=== PATIENT | female | born 1975 | race Caucasian/White ===

== ENCOUNTER 2017-03-23 19:31 | Emergency (ER) | payer OTHER ==
[~2017-03-23] VITALS: Ht 167.6 cm; Wt 97.1 kg
[2017-03-23 20:41] LABS: BASOPHILS % 0.6 % (0.0-1.0); EOSINOPHILS # (AUTO) 0.1 (0.0-0.4); EOSINOPHILS % 1.8 % (0.0-6.0); HEMATOCRIT 43.7 % (34.2-44.1); LYMPHOCYTES # (AUTO) 2.7 (1.0-3.2); LYMPHOCYTES % 38.6 % (18.0-39.1); MEAN CORPUSCULAR HEMOGLOBIN 31.1 pg (28-32); MEAN CORPUSCULAR HGB CONC 34.3 g/dL (31-35); MEAN CORPUSCULAR VOLUME 90.7 fL (81-99); MONOCYTES # (AUTO) 0.4 (0.2-0.8); MONOCYTES % 6.1 % (4.4-11.3); NEUTROPHILS # (AUTO) 3.7 (2.1-6.9); NEUTROPHILS % 52.8 % (38.7-80.0); PLATELET COUNT 327 x10e3/uL (140-360); RED BLOOD COUNT 4.82 x10e6/uL (3.6-5.1); RED CELL DISTRIBUTION WIDTH 12.7 % (11.7-14.4)
[2017-03-23 20:42] LABS: BILIRUBIN,URINE NEGATIVE (NEGATIVE); KETONES,URINE NEGATIVE (NEGATIVE); LEUKOCYTE ESTERASE ,URINE NEGATIVE (NEGATIVE); NITRITE,URINE NEGATIVE (NEGATIVE); PROTEIN,URINE DIPSTICK NEGATIVE (NEGATIVE); URINE UROBILINOGEN 0.2 mg/dL (0.2 - 1)
[2017-03-23 20:44] LABS: CLARITY,URINE CLEAR (CLEAR); COLOR,URINE YELLOW (YELLOW)
[2017-03-23 20:52] LABS: PREGNANCY TEST, URINE NEGATIVE (NEGATIVE)
[2017-03-23 20:55] LABS: EPITHELIAL CELLS,URINE MODERATE /LPF; TRANSITIONAL EPI CELLS,URINE FEW
[2017-03-23 20:56] LABS: ALANINE AMINOTRANSFERASE 22 IU/L (0-55); ALBUMIN 4.1 g/dL (3.5-5.0); ALBUMIN/GLOBULIN RATIO 1.1 (0.8-2.0); ALKALINE PHOSPHATASE 80 IU/L (40-150); ANION GAP 17.1 mmol/L (8-16); BLOOD UREA NITROGEN 10 mg/dL (7-26); BUN/CREATININE RATIO 10 (6-25); CALCIUM 8.8 mg/dL (8.4-10.2); CARBON DIOXIDE 19 mmol/L (22-29); CHLORIDE 99 mmol/L (98-107); CREATININE, SERUM 0.97 mg/dL (0.57-1.11); EST GLOMERULAR FILTRATION RATE > 60 ML/MIN (60-); GLUCOSE 319 mg/dL (74-118); POTASSIUM 4.1 mmol/L (3.5-5.1); SODIUM 131 mmol/L (136-145)
[2017-03-23 21:19] LABS: PLATELET ESTIMATE ADEQUATE; PLATELET MORPHOLOGY COMMENT NORMAL; RBC MORPHOLOGY COMMENT NORMAL
[2017-03-23] MEDS ORDERED: SODIUM CHLORIDE 0.9% 1000ML 1,000 ML IV SCH (22:45)
[2017-03-23] MEDS ORDERED: INSULIN REGULAR, HUMAN 100 UNIT/1 ML 3ML VIAL SQ ONE (22:45)
== END 2017-03-24 01:00 | disposition home or self-care (01) ==
LOC: ER 19:31
DX: E11.65 Type 2 diabetes mellitus with hyperglycemia (principal); I10 Essential (primary) hypertension
CPT/HCPCS: 36415; 80053; 81001; 81025; 82948; 85025; 87086; 93005; 99283; J7030

== ENCOUNTER → 2018-06-05 | Outpatient (CLI) | payer OTHER | LOC: MAMMO 13:52 | PROVIDERS: ATTEND Internal Medicine | DX: Z12.31 Encounter for screening mammogram for malignant neoplasm of breast (principal) | CPT/HCPCS: 77067 ==

== ENCOUNTER → 2018-07-05 | Outpatient (CLI) | payer OTHER ==
--- NOTE | 2018-07-06 08:28 | Diagnostic Imaging Report ---
#[id number] - USBRELIMRT ULTRASOUND OF THE RIGHT BREAST : 07/05/2018 Comparison is made to exams dated: 07/05/2018 mammogram and 06/05/2018 mammogram - [facility]. Focused color flow and real-time ultrasound were performed on the right breast at the 5 o'clock position. -There 2 discrete complex cysts at the 5 o'clock position 2 cm from the nipple. These measure 4 x 5 x 7 mm and 7 x 2 x 6 mm. IMPRESSION: BENIGN There is no sonographic evidence of malignancy. A 1 year screening mammogram is recommended. Alvaro Glover Jr., D.O. cw/:07/05/2018 15:24:33 Well Site Drilling Engineer: JAYMIE BARTHOLOMEW RDMS, [facility] letter sent: Normal Exam Ultrasound BI-RADS: 2 Benign
--- NOTE | 2018-07-06 08:28 | Diagnostic Imaging Report ---
#[id number] - MGDXRT #UNILATERAL RIGHT DIGITAL DIAGNOSTIC MAMMOGRAM WITH SPOT COMPRESSION: 07/05/2018 Comparison is made to exam dated: 06/05/2018 mammogram - [facility]. Current study contains 3 films. The tissue of the right breast is heterogeneously dense. This may lower the sensitivity of mammography. Additional imaging shows the mass to persist. An ultrasound is recommended and will follow this exam. No significant masses, calcifications, or other findings are seen in the breast. IMPRESSION: INCOMPLETE: NEEDS ADDITIONAL IMAGING EVALUATION Follow-up with ACR/ACS guidelines. The patient was notified of these findings. Alvaro Glover Jr., D.O. cw/:07/05/2018 15:19:07 Coppersmith Apprentice: Eboni SHAH)(M), [facility] letter sent: Additional Imaging Needed Mammogram BI-RADS: 0 Indeterminate
== END ==
LOC: MAMMO 13:08
PROVIDERS: ATTEND Internal Medicine
DX: N63.10 Unspecified lump in the right breast, unspecified quadrant (principal)

== ENCOUNTER 2018-11-17 14:26 | Observation (INO) | payer OTHER ==
[~2018-11-17] VITALS: Ht 167.6 cm; Wt 105.2 kg
--- OUTSIDE RECORDS SUMMARY | 2018-11-17 14:29 | XMS REPORT ---
Author Author [facility] Address Unknown Phone Unavailable Care Team Providers Care [place] Distribution Clerk Name Role Phone HUYEN ARELLANO Unavailable Unavailable Payers Payer Name Policy Type Policy Number Effective Date Expiration Date Problems This patient has no known problems. Allergies, Adverse Reactions, Alerts Allergy Name Allergy Type Status Severity Reaction(s) Onset Date Inactive Date Treating Clinician Comments COLLAGEN (SYNTHETIC) DA Active U 2018-03-05 00:00:00 No Known Allergies DA Active U 2016-06-01 00:00:00 Medications This patient has no known medications. Results Test Description Test Time Test Comments Text Results Atomic Results Result Comments MAMMOGRAPHY DIGITAL DX UNI RT 2018-07-05 14:34:00 [facility] [address] [place] [address] Patient Name: SHANTELL MALLORY MR #: [id number] : 1975 Age/Sex: 42/F Req #: [id number] Adm Physician: Ordered by: HUYEN ARELLANO MD Report #: [id number] Location: MAMMO Room/Bed: Procedure: MG/MAMMOGRAPHY DIGITAL DX UNI RT Exam Date: 07/05/18 Exam Time: 1326 REPORT STATUS: Signed #[id number] - MGDXRT #UNILATERAL RIGHT DIGITAL DIAGNOSTIC MAMMOGRAM WITH SPOT COMPRESSION: 07/05/2018 Comparison is made to exam dated: 06/05/2018 mammogram - [facility]. Current study contains 3 films. The tissue of the right breast is heterogeneously dense. This may lower the sensitivity of mammography. Additional imaging shows the mass to persist. An ultrasound is recommended and will follow this exam. No significant masses, calcifications, or other findings are seen in the breast. IMPRESSION: INCOMPLETE: NEEDS ADDITIONAL IMAGING EVALUATION Follow-up with ACR/ACS guidelines. The patient was notified of these findings. Alvaro Le Jr., D.O. cw/:07/05/2018 15:19:07 Operator Assistant I Cementing: Eboni BELL(R)(M), [facility] letter sent: Additional Imaging Needed Mammogram BI-RADS: 0 Indeterminate Dictated By: ALVARO LE DO 18 Transcribed By: ABELINO on 07/05/181518 COPY TO: HUYEN ARELLANO MD BREAST LIMITED RIGHT 2018-07-05 14:34:00 [place] [address] Patient Name: SHANTELL MALLORY MR #: [id number] : 1975 Age/Sex: 42/F Req #: [id number] Adm Physician: Ordered by: HUYEN ARELLANO MD Report #: [id number] Location: MAMMO Room/Bed: Procedure: [id number] US/US BREAST LIMITED RIGHT Exam Date: Exam Time: REPORT STATUS: Signed #[id number] - USBRELIMRT ULTRASOUND OF THE RIGHT BREAS T : 07/05/2018 Comparison is made to exams dated: 07/05/2018 mammogram and 06/05/2018 mammogram - [facility]. Focused color flow and real-time ultrasound were performed on the right breast at the 5 o'clock position. -There 2 discrete complex cysts at the 5 o'clock position 2 cm from the nipple. These measure 4 x 5 x 7 mm and 7 x 2 x 6 mm. IMPRESSION: BENIGN There is no sonographic evidence of malignancy. A 1 year screening mammogram is recommended. Alvaro Le Jr., D.O. cw/:07/05/2018 15:24:33 Operator Assistant I Cementing: JAYMIE BARTHOLOMEW [facility], [facility] letter sent: Normal Exam Ultrasound BI-RADS: 2 Benign Dictated By: ALVARO LE DO 1524 Transcribed By: ABELINO on 07/05/18 1524 COPY TO: HUYEN ARELLANO MD MAMMOGRAPHY DIGITAL SCR BILAT 2018-06-05 14:47:00 [place] [address] Patient Name: SHANTELL MALLORY MR #: [id number] : 1975 Age/Sex: 42/F Req #: [id number] Adm Physician: Ordered by: HUYEN ARELLANO MD Report #: [id number] Location: MAMMO Room/Bed: Procedure: [id number] MG/MAMMOGRAPHY DIGITAL SCR BILAT Exam Date: 06/05/18 Exam Time: 1400 REPORT STATUS: Signed #[id number] - MGSCRBIL #BILATERAL DIGITAL SCREENING MAMMOGRAM WITH CAD: 06/05/2018 CLINICAL: Routine screening. No prior exams were available for comparison. The tissue of both breasts is heterogeneously dense. This may lower the sensitivity of mammography. Current study was also evaluated with a Computer Aided Detection (CAD) system. There is a 5 mm mass in the right breast at 5 o'clock anterior depth. No other significant masses, calcifications, or other findings are seen in either breast. IMPRESSION: INCOMPLETE: NEEDS ADDITIONAL IMAGING EVALUATION The 5 mm mass in the right breast is indeterminate. Additional views with possible ultrasound are recommended. The patient will be contacted by the Mammography Department to schedule this appointment. TOMI TALAVERA M.D., mc/abelino:06/19/2018 09:19:30 Operator Assistant I Cementing: Eboni SHAH)(Tee), [facility] letter sent: Additional Imaging Needed Mammogram BI-RADS: 0 Indeterminate Dictated By: KOLTON TALAVERA MD 8 Transcribed By: ABELINO on 06/19/18918 COPY TO: HUYEN ARELLANO MD GLUBED 2018-03-07 14:20:00 GLUBED (test code=GLUBED) 234 mg/dL 74-106 Performed by certified heddle machine operator at [facility] [id number] 12:03:00 RUN DATE: 03/07/18 [place] - Lab PAGE 1 RUN TIME: 1203 Specimen Inqui ry RUN USER: INTERFACE PATIENT: SHANTELL MALLORY ACCT #: [id number] [facility] U #: [id number] AGE/SX: 42/F ROOM: 2034 RE03/06/18REG DR: Sherice Ron MD : 75 BED: A DIS: STATUS: ADM Vivek TLOC: SPEC #: [id number] RECD: 03/06/18 STATUS: [facility] #: [id number] ORION: 03/06/18- SUBM DR: Sherice Ron ENTERED: 03/06/18 SP TYPE: UTERUS OTHR DR: Neetu Arellano MD ORDERED: GROSS COPIES TO: Neetu Arellano MD [address] [place], [place] [address] [email or web address] Sherice Ron MD 0[address] [facility], [address] [address] MARKERS: ABNORMAL TISSUE, UTERUS PROCEDURES: GROSS (03/07/18-1037) TISSUES: UTERUS, NOS - CERVIX, BILATERAL FALLOPIAN TUBES CLI NICAL HISTORY COLLECTION DATE: 03/06/18 PELVIC PAIN, MENOMETRORRHAGIA FINAL DIAGNOSIS Uterus with bilateral fallopian tubes, hysterectomy with bilateral salpingectomy: CERVIX, PATCHY CHRONIC CERVICITIS END OMETRIUM, SECRETORY PATTERN MYOMETRIUM, AREA OF SUPERFICIAL ADENOMYOSIS SEROSA, NO PATHOLOGIC ALTERATION BILATERAL FALLOPIAN TUBES, FIMBRIA SUSIE AND TRANSECTED FALLOPIAN TUBES X 2 WITH MILD ATROPHIC CHANGE NEGATIVE FOR MALIGNANCY RRB/sm A [id number] CONTINUED ON NEXT PAGE RUN DATE: 03/07/18 [facility] PAGE 2 RUN TIME: 1203 Specimen Inquiry RUN USER: INTERFACE SPEC #: [id number] PATIENT: SHANTELL MALLORY #[id number] (Continued)-- MACROSCOPIC The specimen is received in formalin, label ed with the patient's name, and identified as "uterus cervix bilateral fallopi an tubes". It consists of a symmetrically shaped uterus with bilaterally tesfaye ched fallopian tubes. The uterus measures 9.5 cm from the top of the fundus t o the cervix, 7.0 cm from right to left and up to 5.0 cm in A-P diameter. The right fallopoian tube segment is fimbriated and measures 7 cm in length with diameter up to 0.6 cm. The left fallopian tube segment is fimbriated and measu res 7 cm in length with diameter up to 0.6 cm. After removing both fallopian tubes the uterus weighs 134.1 grams. The serosal surface is pink-red t o pink-anguiano and smooth. The ectocervical mucosa is pink-maxwell and smooth. The cervical os is round and patent. No focal lesions are seen within the endocer vical canal. The endometrial cavity is empty but the lining appears to be red undant in some areas with a thickness up to 0.4 cm. The majority of the endom etrial lining measures up to 0.2 cm in thickness. The myometrium is pink-maxwell, homogenous and measures up to 2.2 cm in thickness. No discrete nodules or ma sses are identified. A small amount of fatty tissue is attached to the distal ends of both fallopian tubes but no other focal lesions are seen. Secti on Code: 1A-1B- anterior and posterior cervix; 1C-1D- anterior and posterior e ndomyometrium; 1E- sections of right fallopian tubes; 1F- sections of left fal lopian tube. GROSS PERFORMED AT [facility] [address] [place] [address] (P)[phone] MICRO SCOPIC MICROSCOPIC PERFORMED AT [facility] All of the stains, i ncluding any controls performed, stain appropriately. [facility] [address] [place] [address] (P)[phone] PERFORMING SITE Diagnosis performed at: [facility], [place] [address] [place] [address] CONTINUED ON NEXT PAGE RUN DATE: 03/07/18 [facility] PAGE 3 RUN TIME: 1203 Specimen Inquiry RUN USER: INTERFACE SPEC #: [id number] PATIENT: MOHAMUDSHANTELL WILLIS #[id number] (Continued)------- ----- PERFORMING SITE (Continued) [phone]-------- ---- Signed SIGNATURE ON FILE Abisai Goodman 03/07/18 1203 END OF REPORT CBC W/AUTO [id number] 07:46:00* Test Item Value Reference Range Comments WHITE BLOOD CELL (test code=WBC) 10.0 K/mm3 4.5-12.5 RED BLOOD CELL (test code=RBC) 3.97 mill/mm3 3.7-5.2 HEMOGLOBIN (test code=HGB) 11.9 gram/dL 11.5-15.5 HEMATOCRIT (test code=HCT) 37.7 % 36.0-46.0 MEAN CELL VOLUME (test code=MCV) 95.0 fL 80-98 MEAN CELL HGB (test code=MCH) 30.0 picogram 27.0-33.0 MEAN CELL HGB CONCETRATION (test code=MCHC) 31.6 gram/dL 33.0-36.0 RED CELL DISTRIBUTION WIDTH (test code=RDW) 12.7 % 11.6-16.2 RED CELL DISTRIBUTION WIDTH SD (test code=RDW-SD) 44.0 fL 37.0-51.0 PLATELET COUNT (test code=PLT) 299 K/mm3 150-450 RESULT VERIFIED BY REPEAT ANALYSIS MEAN PLATELET VOLUME (test code=MPV) 8.6 fL 6.7-11.0 NEUTROPHIL % (test code=NT%) 63.0 % 39.0-69.0 IMMATURE GRANULOCYTE % (test code=IG%) 0.3 % 0.0-5.0 LYMPHOCYTE % (test code=LY%) 30.6 % 25.0-55.0 MONOCYTE % (test code=MO%) 5.1 % 0.0-10.0 EOSINOPHIL % (test code=EO%) 0.7 % 0.0-5.0 BASOPHIL % (test code=BA%) 0.3 % 0.0-1.0 NUCLEATED RBC % (test code=NRBC%) 0.0 % 0-0 NEUTROPHIL # (test code=NT#) 6.27 K/mm3 1.8-7.7 IMMATURE GRANULOCYTE # (test code=IG#) 0.03 x10 3/uL 0-0.03 LYMPHOCYTE # (test code=LY#) 3.05 K/mm3 1.0-5.0 MONOCYTE # (test code=MO#) 0.51 K/mm3 0-0.8 EOSINOPHIL # (test code=EO#) 0.07 K/mm3 0.0-0.5 BASOPHIL # (test code=BA#) 0.03 K/mm3 0.0-0.2 NUCLEATED RBC # (test code=NRBC#) 0.00 K/mm3 0.0-0.1 MANUAL DIFF REQUIRED (test code=MDIFF) NO [id number] 07:32:00* Test Item Value Reference Range Comments GLUBED (test code=GLUBED) 174 mg/dL 74-106 Performed by certified heddle machine operator at [facility] COMPREHENSIVE METABOLIC [id number] 06:59:00* Test Item Value Reference Range Comments SODIUM (test code=NA) 138 mmol/L 136-145 POTASSIUM (test code=K) 3.7 mmol/L 3.5-5.1 CHLORIDE (test code=CL) 106.0 mmol/L 98-107 CARBON DIOXIDE (test code=CO2) 23.0 mmol/L 21-32 ANION GAP (test code=GAP) 12.7 10-20 GLUCOSE (test code=GLU) 193 mg/dL 74-106 BLOOD UREA NITROGEN (test code=BUN) 3 mg/dL 7-18 GLOMERULAR FILTRATION RATE (test code=GFR) > 60 mL/min >=60 Estimated GFR by using Modified MDRD formula.Chronic kidney disease is defined as either kidney damageor GFR <60 mL/min/1.73 m2 for >3 months. CREATININE (test code=CREAT) 0.80 mg/dL 0.55-1.02 Note change in reference range due to change in reagent. BUN/CREATININE RATIO (test code=BUN/CREA) 3.9 10-20 TOTAL PROTEIN (test code=PROT) 6.1 gram/dL 6.4-8.2 ALBUMIN (test code=ALB) 3.0 g/dL 3.4-5.0 GLOBULIN (test code=GLOB) 3.1 gram/dL 2.7-4.2 ALBUMIN/GLOBULIN RATIO (test code=A/G) 1.0 0.75-1.50 CALCIUM (test code=CA) 7.7 mg/dL 8.5-10.1 BILIRUBIN TOTAL (test code=BILT) 0.20 mg/dL 0.0-1.0 SGOT/AST (test code=AST) 11 IUnit/L 15-37 SGPT/ALT (test code=ALT) 26 IUnit/L 12-78 ALKALINE PHOSPHATASE TOTAL (test code=ALKP) 60 IUnit/L 45-117 Note change in reference range due to change in reagent. [id number] 21:16:00* Test Item Value Reference Range Comments GLUBED (test code=GLUBED) 153 mg/dL 74-106 Performed by certified heddle machine operator at [facility] [id number] 15:53:00* Test Item Value Reference Range Comments GLUBED (test code=GLUBED) 212 mg/dL 74-106 Performed by certified heddle machine operator at [facility] HGB [id number] 14:40:00* Test Item Value Reference Range Comments HEMOGLOBIN (test code=HGB) 13.2 gram/dL 11.5-15.5 HEMATOCRIT (test code=HCT) 40.5 % 36.0-46.0 [id number] 10:18:00* Test Item Value Reference Range Comments GLUBED (test code=GLUBED) 164 mg/dL 74-106 Performed by certified heddle machine operator at [facility] COMPREHENSIVE METABOLIC [id number] 15:37:00* Test Item Value Reference Range Comments SODIUM (test code=NA) 132 mmol/L 136-145 POTASSIUM (test code=K) 4.0 mmol/L 3.5-5.1 CHLORIDE (test code=CL) 99.0 mmol/L 98-107 CARBON DIOXIDE (test code=CO2) 26.0 mmol/L 21-32 ANION GAP (test code=GAP) 11.0 10-20 GLUCOSE (test code=GLU) 209 mg/dL 74-106 BLOOD UREA NITROGEN (test code=BUN) 5 mg/dL 7-18 GLOMERULAR FILTRATION RATE (test code=GFR) > 60 mL/min >=60 Estimated GFR by using Modified MDRD formula.Chronic kidney disease is defined as either kidney damageor GFR <60 mL/min/1.73 m2 for >3 months. CREATININE (test code=CREAT) 0.80 mg/dL 0.55-1.02 Note change in reference range due to change in reagent. BUN/CREATININE RATIO (test code=BUN/CREA) 6.0 10-20 TOTAL PROTEIN (test code=PROT) 7.5 gram/dL 6.4-8.2 ALBUMIN (test code=ALB) 3.9 g/dL 3.4-5.0 GLOBULIN (test code=GLOB) 3.6 gram/dL 2.7-4.2 ALBUMIN/GLOBULIN RATIO (test code=A/G) 1.1 0.75-1.50 CALCIUM (test code=CA) 8.5 mg/dL 8.5-10.1 BILIRUBIN TOTAL (test code=BILT) 0.20 mg/dL 0.0-1.0 SGOT/AST (test code=AST) 9 IUnit/L 15-37 SGPT/ALT (test code=ALT) 28 IUnit/L 12-78 ALKALINE PHOSPHATASE TOTAL (test code=ALKP) 74 IUnit/L 45-117 Note change in reference range due to change in reagent. HCG SERUM [id number] 15:37:00* Test Item Value Reference Range Comments HCG SERUM QUAL (test code=HCGQL) NEGATIVE NEGATIVE This HCGQL test is NOT applicable for MALE patients.Check with nurse about probable order error.If Tumor Marker Test needed, nurse should order test "HCGTU"(Test #550.69134) COMPREHENSIVE METABOLIC [id number] 14:46:00* Test Item Value Reference Range Comments SODIUM (test code=NA) 132 mmol/L 136-145 POTASSIUM (test code=K) 4.0 mmol/L 3.5-5.1 CHLORIDE (test code=CL) 99.0 mmol/L 98-107 CARBON DIOXIDE (test code=CO2) 26.0 mmol/L 21-32 ANION GAP (test code=GAP) 11.0 10-20 GLUCOSE (test code=GLU) 209 mg/dL 74-106 BLOOD UREA NITROGEN (test code=BUN) 5 mg/dL 7-18 GLOMERULAR FILTRATION RATE (test code=GFR) > 60 mL/min >=60 Estimated GFR by using Modified MDRD formula.Chronic kidney disease is defined as either kidney damageor GFR <60 mL/min/1.73 m2 for >3 months. CREATININE (test code=CREAT) 0.80 mg/dL 0.55-1.02 Note change in reference range due to change in reagent. BUN/CREATININE RATIO (test code=BUN/CREA) 6.0 10-20 TOTAL PROTEIN (test code=PROT) 7.5 gram/dL 6.4-8.2 ALBUMIN (test code=ALB) 3.9 g/dL 3.4-5.0 GLOBULIN (test code=GLOB) 3.6 gram/dL 2.7-4.2 ALBUMIN/GLOBULIN RATIO (test code=A/G) 1.1 0.75-1.50 CALCIUM (test code=CA) 8.5 mg/dL 8.5-10.1 BILIRUBIN TOTAL (test code=BILT) 0.20 mg/dL 0.0-1.0 SGOT/AST (test code=AST) 9 IUnit/L 15-37 SGPT/ALT (test code=ALT) 28 IUnit/L 12-78 ALKALINE PHOSPHATASE TOTAL (test code=ALKP) 74 IUnit/L 45-117 Note change in reference range due to change in reagent. HCG SERUM [id number] 14:46:00* Test Item Value Reference Range Comments HCG SERUM QUAL (test code=HCGQL) NEGATIVE COMPREHENSIVE METABOLIC [id number] 14:40:00* Test Item Value Reference Range Comments SODIUM (test code=NA) 132 mmol/L 136-145 POTASSIUM (test code=K) 4.0 mmol/L 3.5-5.1 CHLORIDE (test code=CL) 99.0 mmol/L 98-107 CARBON DIOXIDE (test code=CO2) mmol/L 21-32 ANION GAP (test code=GAP) 10-20 GLUCOSE (test code=GLU) mg/dL 74-106 BLOOD UREA NITROGEN (test code=BUN) mg/dL 7-18 GLOMERULAR FILTRATION RATE (test code=GFR) mL/min >=60 CREATININE (test code=CREAT) mg/dL 0.55-1.02 BUN/CREATININE RATIO (test code=BUN/CREA) 10-20 TOTAL PROTEIN (test code=PROT) gram/dL 6.4-8.2 ALBUMIN (test code=ALB) g/dL 3.4-5.0 GLOBULIN (test code=GLOB) gram/dL 2.7-4.2 ALBUMIN/GLOBULIN RATIO (test code=A/G) 0.75-1.50 CALCIUM (test code=CA) mg/dL 8.5-10.1 BILIRUBIN TOTAL (test code=BILT) mg/dL 0.0-1.0 SGOT/AST (test code=AST) IUnit/L 15-37 SGPT/ALT (test code=ALT) IUnit/L 12-78 ALKALINE PHOSPHATASE TOTAL (test code=ALKP) IUnit/L 45-117 HCG SERUM [id number] 14:40:00* Test Item Value Reference Range Comments HCG SERUM QUAL (test code=HCGQL) NEGATIVE URINALYSIS [id number] 14:26:00* Test Item Value Reference Range Comments UA COLOR (test code=COLU) STRAW YELLOW UA APPEARANCE (test code=APPU) CLEAR CLEAR UA GLUCOSE DIPSTICK (test code=DGLUU) >=500 mg/dL NEGATIVE UA BILIRUBIN DIPSTICK (test code=BILU) NEGATIVE mg/dL NEGATIVE UA KETONE DIPSTICK (test code=KETU) Negative mg/dL NEGATIVE UA SPECIFIC GRAVITY (test code=SGU) 1.006 1.001-1.035 UA BLOOD DIPSTICK (test code=DARLENE) Negative NEGATIVE UA PH DIPSTICK (test code=RAMON) 7.0 5.0-8.0 UA PROTEIN DIPSTICK (test code=PROU) Negative mg/dL NEGATIVE UA UROBILINIOGEN DIPSTICK (test code=URO) NEGATIVE mg/dL NEGATIVE UA NITRITE DIPSTICK (test code=SAIRA) NEGATIVE NEGATIVE UA LEUKOCYTE ESTERASE W REFLEX (test code=LEUUR) NEGATIVE NEGATIVE UA WBC (test code=WBCU) 0-5 #/HPF 0-5 UA RBC (test code=RBCU) 0-2 #/HPF 0-5 UA EPITHELIAL CELLS (test code=EPIU) FEW per HPF FEW UA BACTERIA (test code=BACU) FEW #/HPF NONE UA MUCUS (test code=MUCU) FEW #/LPF FEW URINALYSIS [id number] 14:23:00* Test Item Value Reference Range Comments UA COLOR (test code=COLU) STRAW YELLOW UA APPEARANCE (test code=APPU) CLEAR CLEAR UA BILIRUBIN DIPSTICK (test code=BILU) NEGATIVE mg/dL NEGATIVE UA KETONE DIPSTICK (test code=KETU) Negative mg/dL NEGATIVE UA SPECIFIC GRAVITY (test code=SGU) 1.006 1.001-1.035 UA BLOOD DIPSTICK (test code=DARLENE) Negative NEGATIVE UA PH DIPSTICK (test code=RAMON) 7.0 5.0-8.0 UA PROTEIN DIPSTICK (test code=PROU) Negative mg/dL NEGATIVE UA UROBILINIOGEN DIPSTICK (test code=URO) NEGATIVE mg/dL NEGATIVE UA NITRITE DIPSTICK (test code=SAIRA) NEGATIVE NEGATIVE UA LEUKOCYTE ESTERASE W REFLEX (test code=LEUUR) NEGATIVE NEGATIVE UA WBC (test code=WBCU) 0-5 #/HPF 0-5 UA RBC (test code=RBCU) 0-2 #/HPF 0-5 UA EPITHELIAL CELLS (test code=EPIU) FEW per HPF FEW URINALYSIS [id number] 14:22:00* Test Item Value Reference Range Comments UA COLOR (test code=COLU) STRAW YELLOW UA APPEARANCE (test code=APPU) CLEAR CLEAR UA BILIRUBIN DIPSTICK (test code=BILU) NEGATIVE mg/dL NEGATIVE UA KETONE DIPSTICK (test code=KETU) Negative mg/dL NEGATIVE UA SPECIFIC GRAVITY (test code=SGU) 1.006 1.001-1.035 UA BLOOD DIPSTICK (test code=DARLENE) Negative NEGATIVE UA PH DIPSTICK (test code=RAMON) 7.0 5.0-8.0 UA PROTEIN DIPSTICK (test code=PROU) Negative mg/dL NEGATIVE UA UROBILINIOGEN DIPSTICK (test code=URO) NEGATIVE mg/dL NEGATIVE UA NITRITE DIPSTICK (test code=SAIRA) NEGATIVE NEGATIVE UA LEUKOCYTE ESTERASE W REFLEX (test code=LEUUR) NEGATIVE NEGATIVE UA WBC (test code=WBCU) per HPF 0-5 - XR CHEST 2 [id number] 14:22:00 FAX: Neetu Chou [phone] [place]: O St: PRE FAX: Sherice Rivas MD [phone] Name: SHANTELL MALLORY Pt[facility] : 1975 Age/S: 42/F [address] [facility] Unit #: [id number] Loc: [place] [address] Phys: Sherice Ron MD Acct: [id number] Dis Date: Status: PRE SDC PHONE #: [phone] Exam Date: 03/05/2018 1353 FAX #: [phone] Reason: PRE OP EXAMS: CPT CODE: [id number] XR CHEST 2 V 24726 EXAM: Chest X-ray, 2 views; CLINICAL HISTORY: Pelvic pain, menorrhagia; preop; FINDINGS: The lungs are clear, no infiltrates, no edema; no effusions; no pneumothorax; normal cardiomediastinal silhouette. IMPRESSION: Normal chest x-ray. at 0002 Reported and signed by: Lane Hood M.D. CC: Neetu Arellano MD; Sherice Ron MD Technologist: RT Bre(Adonay) Trnscrd Date/Time/By: 03/05/2018 (142) : By: TinoGRW Orig Print D/T: S: 03/05/2018 (4204) PAGE 1 Signed Report CBC W/AUTO DIFF 2018-03-05 14:19:00* Test Item Value Reference Range Comments WHITE BLOOD CELL (test code=WBC) 8.6 K/mm3 4.5-12.5 RED BLOOD CELL (test code=RBC) 4.59 mill/mm3 3.7-5.2 HEMOGLOBIN (test code=HGB) 14.1 gram/dL 11.5-15.5 HEMATOCRIT (test code=HCT) 41.8 % 36.0-46.0 MEAN CELL VOLUME (test code=MCV) 91.1 fL 80-98 MEAN CELL HGB (test code=MCH) 30.7 picogram 27.0-33.0 MEAN CELL HGB CONCETRATION (test code=MCHC) 33.7 gram/dL 33.0-36.0 RED CELL DISTRIBUTION WIDTH (test code=RDW) 12.8 % 11.6-16.2 RED CELL DISTRIBUTION WIDTH SD (test code=RDW-SD) 42.0 fL 37.0-51.0 PLATELET COUNT (test code=PLT) 356 K/mm3 150-450 MEAN PLATELET VOLUME (test code=MPV) 8.5 fL 6.7-11.0 NEUTROPHIL % (test code=NT%) 73.3 % 39.0-69.0 IMMATURE GRANULOCYTE % (test code=IG%) 0.2 % 0.0-5.0 LYMPHOCYTE % (test code=LY%) 21.0 % 25.0-55.0 MONOCYTE % (test code=MO%) 4.2 % 0.0-10.0 EOSINOPHIL % (test code=EO%) 0.8 % 0.0-5.0 BASOPHIL % (test code=BA%) 0.5 % 0.0-1.0 NUCLEATED RBC % (test code=NRBC%) 0.0 % 0-0 NEUTROPHIL # (test code=NT#) 6.30 K/mm3 1.8-7.7 IMMATURE GRANULOCYTE # (test code=IG#) 0.02 x10 3/uL 0-0.03 LYMPHOCYTE # (test code=LY#) 1.81 K/mm3 1.0-5.0 MONOCYTE # (test code=MO#) 0.36 K/mm3 0-0.8 EOSINOPHIL # (test code=EO#) 0.07 K/mm3 0.0-0.5 BASOPHIL # (test code=BA#) 0.04 K/mm3 0.0-0.2 NUCLEATED RBC # (test code=NRBC#) 0.00 K/mm3 0.0-0.1
[2018-11-17 15:10] LABS: BASOPHILS % 0.4 % (0.0-1.0); EOSINOPHILS # (AUTO) 0.1 (0.0-0.4); EOSINOPHILS % 1.2 % (0.0-6.0); HEMATOCRIT 41.1 % (34.2-44.1); HEMOGLOBIN 13.9 g/dL (12.0-16.0); LYMPHOCYTES # (AUTO) 2.2 (1.0-3.2); LYMPHOCYTES % 30.5 % (18.0-39.1); MEAN CORPUSCULAR HEMOGLOBIN 28.9 pg (28-32); MEAN CORPUSCULAR HGB CONC 33.8 g/dL (31-35); MEAN CORPUSCULAR VOLUME 85.4 fL (81-99); MONOCYTES # (AUTO) 0.4 (0.2-0.8); MONOCYTES % 5.3 % (4.4-11.3); NEUTROPHILS # (AUTO) 4.5 (2.1-6.9); NEUTROPHILS % 62.3 % (38.7-80.0); PLATELET COUNT 339 x10e3/uL (140-360); RED BLOOD COUNT 4.81 x10e6/uL (3.6-5.1); RED CELL DISTRIBUTION WIDTH 12.5 % (11.7-14.4)
[2018-11-17 15:17] LABS: BILIRUBIN,URINE NEGATIVE (NEGATIVE); CLARITY,URINE CLEAR (CLEAR); COLOR,URINE YELLOW (YELLOW); KETONES,URINE NEGATIVE (NEGATIVE); LEUKOCYTE ESTERASE ,URINE NEGATIVE (NEGATIVE); NITRITE,URINE NEGATIVE (NEGATIVE); PROTEIN,URINE DIPSTICK NEGATIVE (NEGATIVE); URINE UROBILINOGEN 0.2 mg/dL (0.2 - 1)
[2018-11-17 15:38] LABS: ALANINE AMINOTRANSFERASE 32 IU/L (0-55); ALBUMIN 3.8 g/dL (3.5-5.0); ALBUMIN/GLOBULIN RATIO 1.2 (0.8-2.0); ALKALINE PHOSPHATASE 72 IU/L (40-150); ANION GAP 13.7 mmol/L (8-16); BLOOD UREA NITROGEN 9 mg/dL (7-26); BUN/CREATININE RATIO 11 (6-25); CALCIUM 9.4 mg/dL (8.4-10.2); CARBON DIOXIDE 23 mmol/L (22-29); CHLORIDE 101 mmol/L (98-107); CREATININE, SERUM 0.83 mg/dL (0.57-1.11); EST GLOMERULAR FILTRATION RATE > 60 ML/MIN (60-); GLUCOSE 253 mg/dL (74-118); POTASSIUM 3.7 mmol/L (3.5-5.1); SODIUM 134 mmol/L (136-145)
[2018-11-17 15:44] LABS: BACTERIA,URINE RARE /HPF; EPITHELIAL CELLS,URINE FEW /LPF; PREGNANCY TEST, URINE NEGATIVE (NEGATIVE); RBC,URINE 0-5 /HPF (0-5); WBC,URINE (MAN) 0-5 /HPF (0-5)
[2018-11-17] MEDS ORDERED: SODIUM CHLORIDE 0.9% 1000ML 1,000 ML IV STA (15:59)
[2018-11-17] MEDS ORDERED: MORPHINE SULFATE 2 MG/ML SYR 1ML IV NR (16:00)
[2018-11-17] MEDS ORDERED: KETOROLAC TROMETHAMINE 30 MG/ML VIAL IV NR (16:00)
[2018-11-17] MEDS ORDERED: ONDANSETRON HCL INJ 2MG/ML 2ML 2 MG/ML VIAL IV NR (16:15)
[2018-11-17] MEDS ORDERED: SODIUM CHLORIDE 0.9% 50ML 50 ML ONE (16:19)
[2018-11-17] MEDS ORDERED: IOPAMIDOL 370 MG/ML 200 ML INFUS..BTL INJ ONE (16:20)
--- NOTE | 2018-11-17 17:46 | Diagnostic Imaging Report ---
EXAM: CT Abdomen and Pelvis WITH contrast INDICATION: ^RLQ ABD PAIN ^[id number] ^1626 COMPARISON: None. TECHNIQUE: Abdomen and pelvis were scanned utilizing a multidetector helical scanner from the lung base to the pubic symphysis after administration of IV contrast. Coronal and sagittal reformations were obtained. Routine protocol was performed. Scan was performed when during portal venous phase. IV CONTRAST: 100 mL of Isovue-370 ORAL CONTRAST: None RADIATION DOSE: Total DLP: 861.5 mGy*cm Estimated effective dose: (DLP x 0.015 x size factor) mSv COMPLICATIONS: None FINDINGS: LINES and TUBES: None. LOWER THORAX: Trace low-attenuation bilateral pleural effusions of uncertain etiology. HEPATOBILIARY: No focal hepatic lesions. No biliary ductal dilation. GALLBLADDER: Cholecystectomy. SPLEEN: No splenomegaly. PANCREAS: No focal masses or ductal dilatation. ADRENALS: No adrenal nodules KIDNEYS/URETERS: Kidneys enhance symmetrically. No hydronephrosis. No cystic or solid mass lesions. No stones. GI TRACT: No abnormal distention, wall thickening, or evidence of bowel obstruction. Appendix is not visualized but no inflammatory changes in the right lower quadrant. PELVIC ORGANS/BLADDER: Hysterectomy. The urinary bladder is unremarkable. There appears to be mild superior migration of the left ovary in the left lower quadrant and containing a mildly hyperdense cyst, measuring 2.9 cm and better seen on coronal image 55. The right ovary is not visualized. LYMPH NODES: No lymphadenopathy. VESSELS: Unremarkable. PERITONEUM / RETROPERITONEUM: No free air or fluid. BONES: Unremarkable. SOFT TISSUES: Unremarkable. IMPRESSION: Status post hysterectomy. The left ovary appears to have superiorly migrated into the left lower quadrant and contains a mildly hyperdense cyst, which may represent a hemorrhagic cyst. Right ovary is not visualized. Recommend further evaluation with pelvic ultrasound. Appendix not visualized. No inflammatory changes in the right lower quadrant. Signed by: Dr. Julia Mora M.D. on 11/17/2018 5:43 PM
--- NOTE | 2018-11-17 18:45 | NUR ---
U/S AT BS AT THIS TIME.
--- NOTE | 2018-11-17 19:35 | Diagnostic Imaging Report ---
EXAM: Transabdominal and Transvaginal Pelvic Ultrasound with DUPLEX INDICATION: Pelvic pain COMPARISON: Abdominal CT 11/17/2018 TECHNIQUE: Grayscale transverse and sagittal transabdominal and transvaginal images were obtained of the pelvis. Transvaginal imaging was medically necessary to better evaluate the endometrium and the adnexa. The ovaries were examined with grayscale, color Doppler, and spectral waveform analysis. CLINICAL HISTORY: 43 year old A2; last menstrual period: February 2018. FINDINGS: Uterus: Absent, patient has history of hysterectomy. Right ovary: Size: 4.4 x 2.1 x 3.1 cm, normal Mass/Cyst: None Vascularity: Normal venous and arterial color flow and waveforms. Left ovary: Size: 2.5 x 1.5 x 2.1 cm, normal Mass/Cyst: A 2.4 cm follicle in the left ovary, also seen on same-day abdominal CT Vascularity: Normal venous and arterial color flow and waveforms. Adnexa: Normal Cul-de-sac: No free fluid IMPRESSION: No evidence of ovarian torsion. No acute sonographic pelvic abnormalities. Signed by: Clay Gomez DO on 11/17/2018 7:32 PM
[2018-11-17] MEDS ORDERED: DEXTROSE 50% SYRINGE 50 ML IV PRN (20:00)
[2018-11-17] MEDS: SODIUM CHLORIDE 0.9% 1000ML 1,000 ML IV SCH (20:02)
[2018-11-17] MEDS ORDERED: OMEPRAZOLE40 MG PO (20:16)
[2018-11-17] MEDS ORDERED: JANUMET 50-1,01 EACH PO (20:16)
[2018-11-17] MEDS ORDERED: ATORVASTATIN CA10 MG PO (20:16)
[2018-11-17] MEDS ORDERED: BENICAR40 MG PO (20:16)
[2018-11-17] MEDS ORDERED: BYDUREON (20:16)
--- NOTE | 2018-11-17 20:20 | NUR ---
NEW ADMISSION CAME FROM ER IN A STRETCHER WITH C/O RLQ ABD.PAIN AND VOMITING.ASSESSMENT DONE.AAOX4.AMBULATORY.NO RESP.DISTRESS.ABD.PAIN VOICED 09/22.FAMILY MEMBER AT BED SIDE.IV TO RAC @20 PATENT.IV FLUID RUNNING.ORIENTED TO THE UNIT.BED LOCKED AND IN LOWEST POSITION.PHONE AND CALL LIGHT WITHIN REACH.INSTRUCTED TO CALL FOR ASSISTANCE NEEDED.
[2018-11-17 20:30] VITALS: BP_SYST 138; BP_SYST 148; BP_DIAS 80; BP_DIAS 89
[2018-11-17 21:00] VITALS: BP 148/80
[2018-11-17] MEDS: ONDANSETRON HCL INJ 2MG/ML 2ML 2 MG/ML VIAL IV PRN (21:07)
[2018-11-17] MEDS: MORPHINE SULFATE INJ 4 MG/ML INJ 1ML IV PRN (21:07)
[2018-11-17] MEDS: INSULIN REGULAR, HUMAN 100 UNIT/1 ML 3ML VIAL SQ SCH (21:13)
--- NOTE | 2018-11-17 22:47 | NUR ---
Patient stated that has no drug allergy history.pain medication given.as per the report from Gonzalez Pappas from Er is aware of the consults.
[2018-11-18] VITALS (8 sets, daily range): BP systolic 105–129; BP diastolic 56–76
[2018-11-18] MEDS: SODIUM CHLORIDE 0.9% 1000ML 1,000 ML IV SCH ×3 (04:00→19:58)
[2018-11-18 06:49] LABS: BASOPHILS % 0.4 % (0.0-1.0); EOSINOPHILS # (AUTO) 0.1 (0.0-0.4); HEMOGLOBIN 12.5 g/dL (12.0-16.0); LYMPHOCYTES # (AUTO) 2.3 (1.0-3.2); MEAN CORPUSCULAR HEMOGLOBIN 28.8 pg (28-32); MEAN CORPUSCULAR HGB CONC 32.9 g/dL (31-35); MEAN CORPUSCULAR VOLUME 87.6 fL (81-99); MONOCYTES # (AUTO) 0.3 (0.2-0.8); MONOCYTES % 5.6 % (4.4-11.3); NEUTROPHILS # (AUTO) 2.8 (2.1-6.9); NEUTROPHILS % 50.8 % (38.7-80.0); PLATELET COUNT 265 x10e3/uL (140-360); RED BLOOD COUNT 4.34 x10e6/uL (3.6-5.1); RED CELL DISTRIBUTION WIDTH 12.5 % (11.7-14.4)
[2018-11-18 07:08] LABS: ANION GAP 9.6 mmol/L (8-16); BLOOD UREA NITROGEN 7 mg/dL (7-26); BUN/CREATININE RATIO 9 (6-25); CALCIUM 8.2 mg/dL (8.4-10.2); CARBON DIOXIDE 25 mmol/L (22-29); CHLORIDE 106 mmol/L (98-107); CREATININE, SERUM 0.74 mg/dL (0.57-1.11); EST GLOMERULAR FILTRATION RATE > 60 ML/MIN (60-); GLUCOSE 159 mg/dL (74-118); POTASSIUM 3.6 mmol/L (3.5-5.1); SODIUM 137 mmol/L (136-145)
--- NOTE | 2018-11-18 07:12 | NUR ---
CONSULTS HAS BEEN CALLED.BEDSIDE SHIFT REPORT GIVEN TO THE ONCOMING RN.STABLE CONDITION.
[2018-11-18] MEDS: INSULIN REGULAR, HUMAN 100 UNIT/1 ML 3ML VIAL SQ SCH ×4 (07:30→20:39)
[2018-11-18] MEDS: ONDANSETRON HCL INJ 2MG/ML 2ML 2 MG/ML VIAL IV PRN ×3 (08:10→20:25)
[2018-11-18] MEDS: MORPHINE SULFATE INJ 4 MG/ML INJ 1ML IV PRN ×3 (08:10→20:30)
--- NOTE | 2018-11-18 12:41 | History and Physical ---
CHIEF COMPLAINT: Abdominal pain since last 2 days, progressively worsening. HISTORY OF PRESENT ILLNESS: A 43-year-old pleasant white female with past medical history of multiple medical problem, was admitted at [facility] last evening with above complaints. As per patient, since last 2 days she started having periumbilical pain radiating to back and then radiating to right side of the abdomen, progressively getting worse. Also complaining of chronic nausea for last few months on and off and hence the patient came to the ER last evening. In the emergency room, the patient was seen by emergency room doctor and admitted for further care and treatment. At present, the patient is lying comfortably in bed, no apparent distress. No chest pain. No shortness of breath. No nausea. No vomiting. No diarrhea. No loss of consciousness. No palpitations. No headaches. No hematemesis. No melena. No hematuria or dysuria. No fever. No cough. No witnessed seizures. PAST MEDICAL HISTORY: 1. Diabetes mellitus type 2. 2. Hyperlipidemia. 3. Acid reflux. MEDICATIONS: As listed in chart. ALLERGIES: NO KNOWN DRUG ALLERGIES. SOCIAL HISTORY: No smoking. No alcohol. No illicit drug use. , lives with family. FAMILY HISTORY: Noncontributory. REVIEW OF SYSTEMS: As per HPI. PHYSICAL EXAMINATION: GENERAL: The patient is alert, awake, and oriented x3, in no apparent distress, lying in bed. VITAL SIGNS: Temperature is 97, pulse is 70 per minute, respiratory rate 18 per minute, blood pressure is 115/70, and saturation is 97% on room air. SKIN: No cyanosis. No icterus. No pallor. HEENT: Normocephalic, atraumatic. PERRLA plus. NECK: Soft, supple. No JVD. No carotid bruit. No lymphadenopathy. LUNGS: Air entry bilaterally equal. No rales or rhonchi. HEART: S1, S2 plus. No murmur, no gallop, no rub. ABDOMEN: Soft, right-sided middle abdomen mild tenderness plus. Bowel sounds plus. 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 No focal deficits. EXTREMITIES: No cyanosis, clubbing, or edema. Peripheral pulses present. No calf pain. LABORATORY DATA: White count 5.5, hemoglobin 12.5, hematocrit 38, platelets 265. Sodium 137, potassium 3.65, chloride 106, bicarb 25, BUN 7, creatinine 0.7, glucose 159. LFTs noted. Urine negative for infection. CT abdomen and pelvis shows status post hysterectomy. The left ovary appears to have superiorly migrated in the left lower quadrant contents, mildly hyperdense cyst. This may represent hemorrhagic cyst. Right ovary is not visualized. Appendix not visualized. No inflammatory changes in right lower quadrant. Pelvic ultrasound shows no evidence of ovarian torsion. No acute sonographic pelvic abnormalities. ASSESSMENT: 1. Abdominal pain. 2. History of diabetes mellitus. 3. Hyperlipidemia. 4. Acid reflux. PLAN: Admit the patient to Medical floor, n.p.o., IV fluids, Protonix 40 mg IV daily. GI consultation, Dr. Blount. Accu-Cheks before meals and at bedtime with NovoLog coverage. Further care as per clinical course of the patient in the hospital. Discussed with the patient and family in detail. MD GENEVA Parks/NELSON /[id number]
--- NOTE | 2018-11-18 18:55 | NUR ---
rounded with cable tv installer nurse, patient aware of change and in no distress. call neville within reach and bed in lowest position.
--- NOTE | 2018-11-18 19:15 | NUR ---
Received the patient from morning Gonzalez Valenzuela .resting in the bed.stable condition.
--- NOTE | 2018-11-18 20:40 | NUR ---
doing rounds.ordered us pelvis.abd. pain voiced 09/22.medicated with morphine 4 mg along with zofran.bed locked and in lowest position.phone and call light within reach.instructed to call for assistance as needed.
[2018-11-19 00:30] VITALS: BP 124/58
--- NOTE | 2018-11-19 00:44 | Consultation ---
DATE OF CONSULTATION: 11/18/2018 REASON FOR CONSULT: Lower abdominal pain for 2 days. HISTORY OF PRESENTING ILLNESS: A 43-year-old, very pleasant white female, who got admitted with acute onset of lower abdominal pain. The pain was 8/10 in intensity, radiating into the lower back. This was intermittent in nature. She has chronic nausea. In the emergency room, blood work revealed normal peripheral cell count, normal electrolytes, normal liver enzymes. CT scan of the abdomen and pelvis with contrast showed left ovarian hemorrhagic cyst. The patient subsequently got admitted in the hospital for further evaluation and management. On the floor, she reports that abdominal pain has significantly resolved. She is tolerating oral diet. She has had one bowel movement, stool soft brown. On further questioning, the patient stated that she has an appointment to see me in my office this . She used to see my associate, Dr. Blount in 2013 for chronic GI problem. As per the patient, she has undergone upper endoscopy and colonoscopy at that time. She was told that everything was unremarkable. She likely has an irritable bowel syndrome. REVIEW OF SYSTEMS: Twelve point system reviewed. Symptomatology is limited to GI system. PAST MEDICAL HISTORY: Type 2 diabetes, hyperlipidemia, GERD. PAST SURGICAL HISTORY: Upper endoscopy and colonoscopy in 2013, cholecystectomy. FAMILY HISTORY: Noncontributory. SOCIAL HISTORY: No smoking, alcohol, or any illicit drug use. ALLERGIES: NO KNOWN DRUG ALLERGIES. HOME MEDICATION: Atorvastatin , Zofran, omeprazole, sitagliptin. PAST MEDICAL HISTORY: GERD, hypertension, hyperlipidemia, type 2 diabetes. REVIEW OF SYSTEMS: A 12-point system reviewed. Symptomatology is limited to GI system. PHYSICAL EXAMINATION: VITAL SIGNS: Temperature 97.6, pulse 80, respirations 22, blood pressure 121/76, oxygen saturation 99% on room air. GENERAL: Obese body habitus, not in any acute distress. HEENT: Oral mucosa is moist. Anicteric sclerae. CVS: S1 and S2 regular. LUNGS: Bilaterally grossly clear. ABDOMEN: Soft, nondistended, nontender. No palpable mass or hernia. Positive bowel sounds. EXTREMITIES: Warm. No leg edema. IMPRESSION: Abdominal pain, likely due to hemorrhagic ovarian cyst. I do not suspect any acute GI pathology. Laboratory data and CT scan reviewed. PLAN: Supportive care. PPI for reflux. Consider pelvic ultrasound to evaluate pelvic pathology regarding the suggestion as recommended by radiologist in the CT finding. I will continue to follow her clinically. Giles Mccormick MD SA/NELSON /[id number]
[2018-11-19] MEDS: SODIUM CHLORIDE 0.9% 1000ML 1,000 ML IV SCH (03:58)
[2018-11-19] MEDS: ONDANSETRON HCL INJ 2MG/ML 2ML 2 MG/ML VIAL IV PRN ×2 (04:10→09:48)
[2018-11-19] MEDS: MORPHINE SULFATE INJ 4 MG/ML INJ 1ML IV PRN ×2 (04:12→09:48)
[2018-11-19 04:57] VITALS: BP 145/81
[2018-11-19 06:18] LABS: ANION GAP 9.9 mmol/L (8-16); BLOOD UREA NITROGEN 5 mg/dL (7-26); BUN/CREATININE RATIO 6 (6-25); CALCIUM 8.7 mg/dL (8.4-10.2); CARBON DIOXIDE 28 mmol/L (22-29); CHLORIDE 102 mmol/L (98-107); CREATININE, SERUM 0.85 mg/dL (0.57-1.11); EST GLOMERULAR FILTRATION RATE > 60 ML/MIN (60-); GLUCOSE 174 mg/dL (74-118); POTASSIUM 3.9 mmol/L (3.5-5.1); SODIUM 136 mmol/L (136-145)
--- NOTE | 2018-11-19 07:00 | NUR ---
Bed side shift report given to the oncoming rn.stable condition.
[2018-11-19 07:24] VITALS: BP 117/56
[2018-11-19] MEDS ORDERED: PANTOPRAZOLE 40 MG 10ML VIAL IV SCH (09:00)
[2018-11-19 11:30] VITALS: BP 114/58
== END 2018-11-19 12:04 | disposition home or self-care (01) ==
LOC: ER 14:28 → ERHOLD 20:15 → MED/SURG 20:23
PROVIDERS: ADMIT Internal Medicine; ATTEND Internal Medicine
DX: R10.31 Right lower quadrant pain (principal); R11.0 Nausea; E11.9 Type 2 diabetes mellitus without complications; E78.5 Hyperlipidemia, unspecified; K21.9 Gastro-esophageal reflux disease without esophagitis; N83.202 Unspecified ovarian cyst, left side; E66.9 Obesity, unspecified; Z68.37 Body mass index [BMI] 37.0-37.9, adult; Z79.84 Long term (current) use of oral hypoglycemic drugs
CPT/HCPCS: 36415 ×3; 74177; 76856; 80048 ×2; 80053; 81001; 81025; 82948 ×3; 83036; 85025 ×2; 99284; C9113; G0378 ×3; J1885; J2270 ×3; J2405 ×3; J7030 ×3; Q9967

== ENCOUNTER 2021-11-03 19:41 | Emergency (ER) | payer OTHER ==
[~2021-11-03] VITALS: Ht 167.6 cm; Wt 105.2 kg
[~2021-11-03 19:41] MED LIST: ATORVASTATIN CA10 MG PO; BENICAR40 MG PO; BYDUREON; JANUMET 50-1,01 EACH PO; OMEPRAZOLE40 MG PO
[2021-11-03] MEDS ORDERED: ONDANSETRON HCL INJ 2MG/ML 2ML 2 MG/ML VIAL IV STA (20:12)
[2021-11-03] MEDS ORDERED: SODIUM CHLORIDE 0.9% 1000ML 1,000 ML IV ONE (20:15)
[2021-11-03] MEDS ORDERED: ONDANSETRON HCL INJ 2MG/ML 2ML 2 MG/ML VIAL ONE (20:27)
[2021-11-03 20:34] LABS: BASOPHILS # (AUTO) 0.1 (0.0-0.1); BASOPHILS % 0.8 % (0.0-1.0); EOSINOPHILS # (AUTO) 0.4 (0.0-0.4); EOSINOPHILS % 4.7 % (0.0-6.0); HEMATOCRIT 37.8 % (34.2-44.1); HEMOGLOBIN 12.3 g/dL (12.0-16.0); LYMPHOCYTES % 37.9 % (18.0-39.1); MEAN CORPUSCULAR HEMOGLOBIN 30.6 pg (28-32); MEAN CORPUSCULAR HGB CONC 32.5 g/dL (31-35); MONOCYTES # (AUTO) 0.5 (0.2-0.8); MONOCYTES % 5.9 % (4.4-11.3); NEUTROPHILS % 50.4 % (38.7-80.0); PLATELET COUNT 391 x10e3/uL (140-360); RED BLOOD COUNT 4.02 x10e6/uL (3.6-5.1); RED CELL DISTRIBUTION WIDTH 12.7 % (11.7-14.4)
[2021-11-03 20:58] LABS: ALBUMIN 4.1 g/dL (3.5-5.0); ALBUMIN/GLOBULIN RATIO 1.6 (0.8-2.0); ANION GAP 13.8 mmol/L (8-16); CREATININE, SERUM 0.75 mg/dL (0.57-1.11); POTASSIUM 3.8 mmol/L (3.5-5.1)
[2021-11-03 22:00] LABS: CLARITY,URINE SL CLOUDY (CLEAR); COLOR,URINE YELLOW (YELLOW)
[2021-11-03 22:01] LABS: KETONES,URINE TRACE (NEGATIVE); LEUKOCYTE ESTERASE ,URINE NEGATIVE (NEGATIVE); NITRITE,URINE NEGATIVE (NEGATIVE); PROTEIN,URINE DIPSTICK NEGATIVE (NEGATIVE); URINE UROBILINOGEN 1 mg/dL (0.2 - 1)
[2021-11-03 22:10] LABS: BACTERIA,URINE MODERATE /HPF; EPITHELIAL CELLS,URINE MODERATE /LPF; WBC,URINE (MAN) 0-5 /HPF (0-5)
[2021-11-03] MEDS ORDERED: ONDANSETRON ODT4 MG PO (22:15)
== END 2021-11-03 22:31 | disposition home or self-care (01) ==
LOC: ER 19:50
DX: R11.0 Nausea (principal); I10 Essential (primary) hypertension; E11.9 Type 2 diabetes mellitus without complications; Z98.84 Bariatric surgery status
CPT/HCPCS: 36415; 80053; 81001; 83690; 85025; 99284; J2405; J7030

== ENCOUNTER 2022-01-11 21:22 | Emergency (ER) | payer OTHER ==
[~2022-01-11] VITALS: Ht 167.6 cm; Wt 105.2 kg
[~2022-01-11 21:22] MED LIST changes: +ONDANSETRON ODT4 MG PO
[2022-01-11 22:19] LABS: BASOPHILS % 0.3 % (0.0-1.0); EOSINOPHILS # (AUTO) 0.1 (0.0-0.4); EOSINOPHILS % 0.9 % (0.0-6.0); HEMATOCRIT 42.2 % (34.2-44.1); HEMOGLOBIN 13.2 g/dL (12.0-16.0); LYMPHOCYTES # (AUTO) 2.7 (1.0-3.2); LYMPHOCYTES % 28.5 % (18.0-39.1); MEAN CORPUSCULAR HEMOGLOBIN 30.1 pg (28-32); MEAN CORPUSCULAR HGB CONC 31.3 g/dL (31-35); MEAN CORPUSCULAR VOLUME 96.3 fL (81-99); MONOCYTES # (AUTO) 0.5 (0.2-0.8); MONOCYTES % 4.9 % (4.4-11.3); NEUTROPHILS # (AUTO) 6.2 (2.1-6.9); NEUTROPHILS % 65.2 % (38.7-80.0); PLATELET COUNT 500 x10e3/uL (140-360); RED BLOOD COUNT 4.38 x10e6/uL (3.6-5.1); RED CELL DISTRIBUTION WIDTH 11.9 % (11.7-14.4)
[2022-01-11 22:40] LABS: ALBUMIN/GLOBULIN RATIO 1.4 (0.8-2.0); ANION GAP 13.6 mmol/L (8-16); CALCIUM 8.9 mg/dL (8.4-10.2); CREATININE, SERUM 0.66 mg/dL (0.57-1.11); POTASSIUM 3.6 mmol/L (3.5-5.1)
[2022-01-11 22:56] LABS: FREE THYROXINE INDEX 1.3715 (1.4-3.8); THYROID STIMULATING HORMONE 0.379 uIU/mL (0.350-4.940)
== END 2022-01-12 00:03 | disposition home or self-care (01) ==
LOC: ER 21:26
DX: E11.649 Type 2 diabetes mellitus with hypoglycemia without coma (principal); I10 Essential (primary) hypertension; Z98.84 Bariatric surgery status
CPT/HCPCS: 36415; 80053; 82150; 82948; 83690; 84436; 84443; 84479; 85025; 99284

== ENCOUNTER 2022-03-13 14:29 | Emergency (ER) | payer OTHER ==
[~2022-03-13] VITALS: Ht 167.6 cm; Wt 105.2 kg
[2022-03-13] MEDS ORDERED: KETOROLAC TROMETHAMINE 30 MG/ML VIAL IV STA (15:14)
[2022-03-13] MEDS ORDERED: AMOX TR-K CLV1 EAC2 PO (16:23)
[2022-03-13] MEDS ORDERED: MUPIROCIN22 GM TOP (16:23)
[2022-03-13 16:29] VITALS: BP 129/78
== END 2022-03-13 16:39 | disposition home or self-care (01) ==
LOC: ER 14:36
DX: S81.852A Open bite, left lower leg, initial encounter (principal); W54.0XXA Bitten by dog, initial encounter; Y99.0 Civilian activity done for income or pay; I10 Essential (primary) hypertension; E11.9 Type 2 diabetes mellitus without complications; Z98.84 Bariatric surgery status; F17.210 Nicotine dependence, cigarettes, uncomplicated
CPT/HCPCS: 73590; 99283; J1885

== ENCOUNTER 2023-04-19 23:38 | Emergency (ER) | payer OTHER ==
[~2023-04-19] VITALS: Ht 167.6 cm; Wt 105.2 kg
[~2023-04-19 23:38] MED LIST changes: +AMOX TR-K CLV1 EAC2 PO; +MUPIROCIN22 GM TOP
[2023-04-19] MEDS ORDERED: SODIUM CHLORIDE 0.9% 1000ML 1,000 ML IV STA (23:45)
[2023-04-19] MEDS: ONDANSETRON HCL 4 MG ORAL DISINTEGRATING TAB PO ONE (23:51)
[2023-04-19] MEDS: KETOROLAC TROMETHAMINE 60 MG/2 ML VIAL IM ONE (23:51)
[2023-04-20 00:10] LABS: CLARITY,URINE SL CLOUDY (CLEAR); COLOR,URINE YELLOW (YELLOW); GLUCOSE, URINE NEGATIVE (NEGATIVE); KETONES,URINE NEGATIVE (NEGATIVE); LEUKOCYTE ESTERASE ,URINE LARGE (NEGATIVE); NITRITE,URINE POSITIVE (NEGATIVE); PH,URINE 6 (5 - 7); PROTEIN,URINE DIPSTICK 2+ (NEGATIVE)
[2023-04-20 00:11] LABS: BILIRUBIN,URINE NEGATIVE (NEGATIVE); PREGNANCY TEST, URINE NEGATIVE (NEGATIVE); URINE UROBILINOGEN 0.2 mg/dL (0.2 - 1)
[2023-04-20 00:25] LABS: BACTERIA,URINE MANY /HPF; EPITHELIAL CELLS,URINE MANY /LPF; RBC,URINE >50 /HPF (0-5); WBC,URINE (MAN) >50 /HPF (0-5)
[2023-04-20] MEDS ORDERED: CIPRO500 MG PO (01:07)
[2023-04-20 01:08] VITALS: BP 132/76; PULSE 68; RESP 17; TEMP 98.6; O2SAT 97
[2023-04-20] MEDS ORDERED: ULTRAM 50MG50 MG PO (01:11)
[2023-04-20] MEDS: HYDROCODONE/APAP 5MG-325MG TAB PO STA (01:15)
== END 2023-04-20 01:17 | disposition home or self-care (01) ==
LOC: ER 23:40
DX: R30.0 Dysuria (principal); N39.0 Urinary tract infection, site not specified; R11.0 Nausea; I10 Essential (primary) hypertension; E11.9 Type 2 diabetes mellitus without complications; Z98.84 Bariatric surgery status
CPT/HCPCS: 74176; 81001; 81025; 99283; J1885; Q0162